=== PATIENT | male | born 1995 | race African-American/Black ===

== ENCOUNTER 2024-04-16 09:48 | Emergency (ER) | payer MEDICAID ==
[~2024-04-16] VITALS: Ht 182.9 cm; Wt 81.8 kg
[2024-04-16 11:16] VITALS: TEMP 97.7
[2024-04-16] MEDS: MethylPREDNISolone SOD SUCC 125 MG/2 ML VIAL IVP ONE (11:20)
[2024-04-16 11:21] VITALS: PULSE 79; RESP 18; RESP 20; O2SAT 95
[2024-04-16] MEDS: ALBUTEROL SULFATE 2.5 MG/0.5 ML 5 ML NEB SOLUTION NEB ONE (11:21)
[2024-04-16] MEDS: IPRATROPIUM BROMIDE 0.5 MG/2.5 ML NEB SOLUTION NEB ONE (11:21)
[2024-04-16 12:40] VITALS: PULSE 63; RESP 20; O2SAT 98
[2024-04-16] MEDS ORDERED: PRED-554 PO (13:17)
[2024-04-16 13:28] VITALS: PULSE 106; RESP 18; O2SAT 96
[2024-04-16] MEDS: ALBUTEROL SULFATE HFA 90 MCG/PUFF 8 GM INHALER IH ONE (13:28)
[2024-04-16 13:45] VITALS: BP 126/54; PULSE 92; RESP 18; O2SAT 95
== END 2024-04-16 17:06 | disposition home or self-care (01) ==
LOC: EMS 09:48
DX: J45.901 Unspecified asthma with (acute) exacerbation (principal); F12.90 Cannabis use, unspecified, uncomplicated; Z88.6 Allergy status to analgesic agent; Z91.040 Latex allergy status
CPT/HCPCS: 99285; 96374; 94644; J2919; J3535